=== PATIENT | female | born 1965 | race African-American/Black ===

== ENCOUNTER 2017-01-31 18:43 | Emergency (ER) | payer OTHER ==
[~2017-01-31] VITALS: Ht 162.6 cm; Wt 100.0 kg
[~2017-01-31 18:43] MED LIST: ALBU18HF2 IH; BECL8.7A6 IH; HYDR-523 PO; HYDR12.529 PO; NIFE-1 PO; ONDA4TAB5 PO
[2017-01-31] MEDS ORDERED: KETOROLAC 30MG/ML VIAL IV STA (19:12)
[2017-01-31] MEDS ORDERED: METHYLPREDNISOLONE SOD SUCC 125 MG/2 ML VIAL IV STA (19:12)
[2017-01-31] MEDS ORDERED: SODIUM CHLORIDE 0.9% 1,000 ML IV ONE (19:12)
[2017-01-31] MEDS ORDERED: IPRATROPIUM BROMIDE (0.02%) 0.5MG/2.5ML NEB HHN STA (19:12)
[2017-01-31] MEDS ORDERED: NITROGLYCERIN OINT 1GM/INCH UDPKT TD ONE (19:15)
[2017-01-31] MEDS ORDERED: MAGNESIUM 2 G PREMIX 50 ML IV ONE (19:15)
[2017-01-31] MEDS ORDERED: ASPIRIN 81MG TABLET PO ONE (19:15)
[2017-01-31] MEDS ORDERED: ALBUTEROL (0.083%) 2.5MG/3ML NEB HHN SCH (19:30)
[2017-01-31 19:52] LABS: BASOPHILS % 0.9 % (0.0-2.0); EOSINOPHILS % 15.7 % (0.0-5.0); HEMATOCRIT. 36.8 % (36.0-48.0); HEMOGLOBIN. 11.9 g/dL (12.0-16.0); LYMPHOCYTES % 44.5 % (20.0-50.0); MEAN CORPUSCULAR HEMOGLOBIN 26.5 pg (28.0-32.0); MEAN CORPUSCULAR HGB CONC 32.2 g/dL (31.0-37.0); MEAN CORPUSCULAR VOLUME 82.2 fL (81.0-99.0); MEAN PLATELET VOLUME 7.1 fl (7.4-10.4); MONOCYTES % 5.9 % (2.0-8.0); PLATELET 319 x1000/uL (130-400); RED BLOOD CELL COUNT 4.48 mill/uL (4.2-5.4); RED CELL DISTRIBUTION WIDTH 16.2 % (11.6-14.6); WHITE BLOOD COUNT 6.8 x1000/uL (4.5-11.0)
[2017-01-31 19:56] LABS: D-DIMER 0.4 mg/L FEU (<0.50); INR 1.1; PROTHROMBIN TIME 11.4 sec
[2017-01-31 20:02] LABS: DIFFERENTIAL COMMENT 1
[2017-01-31 20:05] LABS: ALANINE AMINOTRANSFERASE 13 IU/L (13-61); ALBUMIN 3.9 g/dL (3.4-5.0); ANION GAP 14; CALCIUM 9.3 mg/dL (8.5-10.1); CARBON DIOXIDE 24 mEq/L (21-32); CHLORIDE 108 mEq/L (98-107); ETHANOL BLOOD < 10 mg/dL; INDEX HEMOLYSI 1 (1-3); INDEX ICTERIC 1 (1-4); INDEX LIPEMIC 1 (1-3); LIPASE 65 IU/L (73-393); NT PRO B-TYPE NATRIURETIC PEP 22 pg/mL (5-125); TROPONIN I < 0.02 ng/mL (0.00-0.04); UREA NITROGEN BLOOD 5 mg/dL (7-21); eGFR > 60 mL/min (>60)
[2017-01-31 20:09] LABS: CLARITY URINE CLEAR (CLEAR); COLOR URINE YELLOW (YELLOW); GLUCOSE URINE NEGATIVE (NEGATIVE); KETONES URINE NEGATIVE (NEGATIVE); LEUKOCYTE ESTERASE URINE NEGATIVE (NEGATIVE); NITRITE URINE NEGATIVE (NEGATIVE); OCCULT BLOOD URINE NEGATIVE (NEGATIVE); PROTEIN URINE NEGATIVE (NEGATIVE); SPECIFIC GRAVITY URINE 1.004 (1.005-1.030); UROBILINOGEN URINE 0.2 E.U./dL (0.2-1.0)
[2017-01-31 20:24] LABS: *AMPHETAMINES SCREEN URINE NEGATIVE (NEGATIVE); *BARBITURATES SCREEN URINE NEGATIVE (NEGATIVE); *BENZODIAZEPINES SCREEN URINE NEGATIVE (NEGATIVE); *COCAINE SCREEN URINE NEGATIVE (NEGATIVE); CANNABINOID URINE SCREEN NEGATIVE (NEGATIVE); ECSTASY MDMA SCREEN URINE NEGATIVE (NEGATIVE); METHADONE URINE SCREEN NEGATIVE (NEGATIVE); OPIATES URINE SCREEN NEGATIVE (NEGATIVE); PHENCYCLIDINE URINE SCREEN NEGATIVE (NEGATIVE)
[2017-01-31 21:03] LABS: BG CARBOXYHEMOGLOBIN 0.2 % (0.5-1.5); BG DEOXYHEMOGLOBIN 5.8 % (0.0-5.0); BG FRACTION INSPIRED OXYGEN 21; BG HCO3 ACT 21.7 mmol/L (22.0-26.0); BG METHEMOGLOBIN 0.2 % (0.0-1.5); BG OXYGEN SATURATION 94.2 % (92.0-98.5); BG OXYHEMOGLOBIN 93.8 % (94.0-97.0); BG PCO2 33.7 mmHg (35.0-45.0); BG PH 7.427 (7.350-7.450); BG SAMPLE SITE RIGHT RADIAL; BG TOTAL HEMOGLOBIN 12.1 g/dL (12.0-18.0); BG VENT MODE ROOM AIR
[2017-02-01 01:54] VITALS: BP 149/81
== END 2017-02-01 09:30 | disposition home or self-care (01) ==
LOC: ER 18:43
DX: J45.901 Unspecified asthma with (acute) exacerbation (principal); I10 Essential (primary) hypertension; Z98.890 Other specified postprocedural states
CPT/HCPCS: 36415; 36600; 71010; 80053; 80305; 81003; 82375; 82805; 83605; 83690; 83880; 84484; 85025; 85379; 85610; 87040; 87804; 93005; 94640; 96365; 96375; 99285; G0482; J1885; J2930; J3475; J7030; J7611; Z7610

== ENCOUNTER 2017-04-25 03:01 | Emergency (ER) | payer OTHER ==
[~2017-04-25] VITALS: Ht 162.6 cm; Wt 97.0 kg
[2017-04-25 03:45] VITALS: BP 140/66
== END 2017-04-25 08:47 | disposition left against medical advice (07) ==
LOC: ER 03:02
DX: Z53.21 Procedure and treatment not carried out due to patient leaving prior to being seen by health care provider (principal)